=== PATIENT | male | born 1960 | race Caucasian/White ===

== ENCOUNTER 2021-06-03 19:43 | Emergency (ER) | payer SELFPAY ==
[~2021-06-03] VITALS: Ht 172.7 cm; Wt 61.3 kg
[2021-06-03 20:30] VITALS: BP 133/91
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
== END 2021-06-03 22:04 ==
LOC: ER 19:43
DX: F10.20 Alcohol dependence, uncomplicated; Y90.9 Presence of alcohol in blood, level not specified
CPT/HCPCS: 99283